=== PATIENT | female | born 2000 | race Caucasian/White ===

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

== ENCOUNTER 2018-08-21 08:22 | Emergency (ER) | payer BC ==
[2018-08-21 08:27] VITALS: BP 134/85; PULSE 129; RESP 16; TEMP 99.9
[2018-08-21] MEDS ORDERED: ACETAMINOPHEN TAB 325 MG TAB PO STA (08:36)
--- NOTE | 2018-08-21 08:40 | ED ---
ENT HPI - General Chief complaint: ENT Stated complaint: Neck pain Time Seen by Provider: 08/21/18 08:28 Source: patient, RN notes reviewed Mode of arrival: ambulatory Limitations: no limitations - History of Present Illness Initial comments: 18-year-old female sent emergency Department chief complaint of sore throat, fever, swollen. Patient states that she had this lymph node on the past in which she had it drained by Dr. Lee in a found a benign repeat she did end up with a postprocedural hematoma. Patient states that she developed a sore throat, fever and increased swelling over this areain the last 24 hours. Patient states is tender with palpation. Patient states that they discussed that she may need a CAT scan at some point though they felt that was not necessary when a new is benign. - Related Data Home Medications Medication Instructions Recorded Confirmed Ibuprofen 800 mg PO TID PRN 08/21/18 08/21/18 Previous Rx's Medication Instructions Recorded Amoxicillin 500 mg PO Q8H #30 capsule 08/21/18 Allergies Allergy/AdvReac Type Severity Reaction Status Date / Time No Known Allergies Allergy Verified 08/21/18 08:24 Review of Systems ROS Statement: Those systems with pertinent positive or pertinent negative responses have been documented in the HPI. ROS Other: All systems not noted in ROS Statement are negative. Past Medical History Past Medical History: Asthma Additional Past Medical History / Comment(s): UTI History of Any Multi-Drug Resistant Organisms: None Reported Past Surgical History: No Surgical Hx Reported Past Psychological History: No Psychological Hx Reported Smoking Status: Never smoker Past Alcohol Use History: None Reported Past Drug Use History: None Reported General Exam Limitations: no limitations General appearance: alert, in no apparent distress Head exam: Present: atraumatic, normocephalic, normal inspection Eye exam: Present: normal appearance, PERRL, EOMI. Absent: scleral icterus, conjunctival injection, periorbital swelling ENT exam: Present: mucous membranes moist, TM's normal bilaterally, normal external ear exam. Absent: normal oropharynx (Erythema) Neck exam: Present: normal inspection, tenderness, full ROM, lymphadenopathy (Anterior cervical adenopathy on the right). Absent: meningismus Respiratory exam: Present: normal lung sounds bilaterally. Absent: respiratory distress, wheezes, rales, rhonchi, stridor Cardiovascular Exam: Present: normal rhythm, tachycardia, normal heart sounds. Absent: systolic murmur, diastolic murmur, rubs, gallop, clicks GI/Abdominal exam: Present: soft, normal bowel sounds. Absent: distended, tenderness, guarding, rebound, rigid Course Vital Signs 08/21/18 08:24 Temperature 99.9 F H Pulse Rate 129 H Respiratory 16 Rate Blood Pressure 134/85 O2 Sat by Pulse 100 Oximetry Medical Decision Making - Medical Decision Making 18-year-old female presented for sore throat, swollen though. Patient clinic last or pharyngitis. Patient be started on antibiotics at this time. She will follow up with Dr. Lee if no improvement CAT scan may be performed at a later date. Patient has no difficulty swallowing. Disposition Clinical Impression: Streptococcal sore throat, Cervical lymphadenopathy Disposition: HOME SELF-CARE Condition: Stable Instructions (If sedation given, give patient instructions): Pharyngitis (ED), Lymphadenopathy (ED) Additional Instructions: Please return to the Emergency Department if symptoms worsen or any other concerns. Prescriptions: Amoxicillin 500 mg PO Q8H #30 capsule Is patient prescribed a controlled substance at d/c from ED?: No Referrals: None,Stated [Primary Care Provider] - 1-2 days Roni Lee DO [Doctor of Osteopathic Medicine] - 1-2 days Time of Disposition: 08:39
== END 2018-08-21 09:00 | disposition home or self-care (01) ==
LOC: EC 08:22
DX: J02.0 Streptococcal pharyngitis (principal); R59.0 Localized enlarged lymph nodes
CPT/HCPCS: 99283

== ENCOUNTER 2021-07-02 17:38 | Emergency (ER) | payer BC ==
[2021-07-02 18:19] VITALS: BP 96/78; PULSE 89; RESP 16; TEMP 98.1
[2021-07-02 19:25] LABS: Appearance,Urine Clear (Clear); Bacteria,Urine Rare /hpf; Bilirubin,Urine Negative (Negative); Blood,Urine Moderate (Negative); Color,Urine Yellow; Glucose,Urine (UA) Negative (Negative); Ketones,Urine 1+ (Negative); Leukocyte Esterase,Urine Negative (Negative); Mucus,Urine Rare /hpf; Nitrite,Urine Negative (Negative); PH, Urine 6.5 (5.0-8.0); Protein,Urine 2+ (Negative); RBC,Urine 5 /hpf (0-5); Specific Gravity,Urine 1.006 (1.001-1.035); Squamous Epithelial Cell,Urine 1 /hpf (0-4); Urobilinogen,Urine <2.0 mg/dL (<2.0); WBC,Urine 5 /hpf (0-5)
[2021-07-02] MEDS ORDERED: ONDANSETRON 4 MG/2 ML VIAL IVP STA (20:50)
[2021-07-02] MEDS ORDERED: SODIUM CHLORIDE 0.9% 1,000 ML IV STA (20:50)
[2021-07-02] MEDS ORDERED: ONDANSETRON ODT 4 MG TAB PO STA (21:11)
[2021-07-02 21:19] LABS: Basophils # (A) 0.1 k/uL (0-0.2); Basophils % (A) 1 %; Eosinophils # (A) 0.1 k/uL (0-0.7); Eosinophils % (A) 1 %; HCT 44.7 % (34.0-46.0); HGB 14.6 gm/dL (11.4-16.0); Lymphocytes # (A) 1.5 k/uL (1.0-4.8); Lymphocytes % (A) 15 %; MCH 27.8 pg (25.0-35.0); MCHC 32.6 g/dL (31.0-37.0); MCV 85.3 fL (80.0-100.0); Mean Platelet Volume 8.4; Monocytes # (A) 0.5 k/uL (0-1.0); Monocytes % (A) 5 %; Neutrophils # (A) 7.7 k/uL (1.3-7.7); Neutrophils % (A) 77 %; Platelet Count 195 k/uL (150-450); RBC 5.23 m/uL (3.80-5.40); RDW 11.4 % (11.5-15.5)
--- NOTE | 2021-07-02 21:20 | ED ---
Nausea/Vomiting/Diarrhea HPI - General Chief complaint: Nausea/Vomiting/Diarrhea Stated complaint: Vomiting/abd pain Time Seen by Provider: 07/02/21 20:31 Source: patient Mode of arrival: ambulatory Limitations: no limitations - History of Present Illness Initial comments: Patient is a 21-year-old female presenting with chief complaint of nausea and vomiting. Patient states that for the last 4 days she has felt nauseous consistently throughout the day, today she began vomiting. Patient states that she has diffuse abdominal pain and her abdomen feels tight. Pain is mainly localized to the right upper quadrant. She was seen by her PCP today who a dvised her to present to the ER. Patient states that she is able to tolerate fluids and a somewhat help relieve her symptoms. She has had very little appetite for the last 4 days, notes no relation to food ingestion with pain and nausea. Patient states that she started her menstrual cycle today. Patient denies chest pain, shortness of breath, fever, chills, hematemesis, hematochezia, diarrhea, constipation, melena, URI-like symptoms, dysuria, hematuria, urgency, frequency, pelvic pain, history of abdominal surgeries. - Related Data Home Medications Medication Instructions Recorded Confirmed Ibuprofen 800 mg PO TID PRN 08/21/18 07/02/21 Albuterol Inhaler [Ventolin Hfa 2 puff INHALATION RT-QID PRN 07/02/21 07/02/21 Inhaler] Dicyclomine (Unknown Strength) 1 dose PO QID PRN 07/02/21 07/02/21 Escitalopram [Lexapro] 10 mg PO DAILY 07/02/21 07/02/21 Etonogestrel/Ethinyl Estradiol 1 vag ring VAGINAL DIRECTED 07/02/21 07/02/21 [Eluryng Vaginal Ring] Famotidine 40 mg PO DAILY 07/02/21 07/02/21 Loratadine 10 mg PO DAILY 07/02/21 07/02/21 Ondansetron Odt [Zofran Odt] 4 mg PO Q8H PRN 07/02/21 07/02/21 Pregabalin [Lyrica] 50 mg PO DAILY 07/02/21 07/02/21 Pregabalin [Lyrica] 100 mg PO HS 07/02/21 07/02/21 buPROPion HCL [buPROPion HCL Xl] 150 mg PO DAILY 07/02/21 07/02/21 busPIRone HCL 10 mg PO DAILY 07/02/21 07/02/21 Previous Rx's Medication Instructions Recorded Ondansetron Odt [Zofran Odt] 4 mg PO Q8HR PRN #20 tab 07/03/21 Allergies Allergy/AdvReac Type Severity Reaction Status Date / Time Latex, Natural Rubber Allergy Unknown Verified 07/02/21 21:54 Review of Systems ROS Statement: Those systems with pertinent positive or pertinent negative responses have been documented in the HPI. ROS Other: All systems not noted in ROS Statement are negative. Past Medical History Past Medical History: Asthma Additional Past Medical History / Comment(s): UTI History of Any Multi-Drug Resistant Organisms: None Reported Past Surgical History: No Surgical Hx Reported Past Psychological History: No Psychological Hx Reported Smoking Status: Never smoker Past Alcohol Use History: None Reported Past Drug Use History: None Reported General Exam Limitations: no limitations General appearance: alert, in no apparent distress Head exam: Present: atraumatic, normocephalic, normal inspection Eye exam: Present: normal appearance. Absent: scleral icterus ENT exam: Present: normal exam, mucous membranes moist Neck exam: Present: normal inspection Respiratory exam: Present: normal lung sounds bilaterally. Absent: respiratory distress, wheezes, rales, rhonchi, stridor Cardiovascular Exam: Present: regular rate, normal rhythm, normal heart sounds. Absent: systolic murmur, diastolic murmur, rubs, gallop, clicks GI/Abdominal exam: Present: soft, tenderness (Diffusely, most notably in the right upper quadrant), normal bowel sounds. Absent: distended, guarding, rebound, rigid Back exam: Present: normal inspection. Absent: CVA tenderness (R), CVA tenderness (L) Neurological exam: Present: alert, oriented X3, CN II-XII intact Psychiatric exam: Present: normal affect, normal mood Skin exam: Present: warm, dry, intact, normal color. Absent: rash Course Vital Signs 07/02/21 18:16 Temperature 98.1 F Pulse Rate 89 Respiratory 16 Rate Blood Pressure 96/78 O2 Sat by Pulse 96 Oximetry Medical Decision Making - Medical Decision Making Patient is a 21-year-old female presenting with chief complaint of nausea and vomiting. Patient admits to right upper quadrant abdominal pain, states that her entire abdomen "feels tight". Vitals are stable. On examination there are bowel sounds in all 4 quadrants, abdomen is diffusely tender, but most notably in the right upper quadrant. Patient was given Zofran and GI cocktail for symptomatic relief. Lab work is remarkable for elevated creatinine of 1.05. [facility] B x-ray is unremarkable. Ultrasound is unremarkable. Patient is given [address] of the abdomen and pelvis with contrast is ordered. On reevaluation patient states that she does not wish to obtain a CT today as she has had several in the last year and she does not want the radiation. I discussed the pros and cons of computed tomography scan today with her, patient remained firm in her decision to not obtain a CT today and is asking to be discharged. Patient acknowledges that this is against my medical recommendations and is not standard of care for her presentation. Patient ac knowledges that going against medical recommendations may result in permanent disability or . I provided her with a prescription for Zofran 4 mg every 8 hours as needed for nausea, I explained to her that this is not the standard of care but is being prescribed in order to help with symptomatic treatment. I answered all questions. Report back to ER if any worsening symptoms. Follow up with PCP in one to 2 days. Patient conveyed verbal understanding and agreed to the plan. - Lab Data Result diagrams: 07/02/21 21:08 07/02/21 21:08 Lab Results 07/02/21 07/02/21 07/02/21 Range/Units 18:55 18:55 18:59 WBC (3.8-10.6) k/uL RBC (3.80-5.40) m/uL Hgb (11.4-16.0) gm/dL Hct (34.0-46.0) % MCV (80.0-100.0) fL MCH (25.0-35.0) pg MCHC (31.0-37.0) g/dL RDW (11.5-15.5) % Plt Count (150-450) k/uL MPV Neutrophils % % Lymphocytes % % Monocytes % % Eosinophils % % Basophils % % Neutrophils # (1.3-7.7) k/uL Lymphocytes # (1.0-4.8) k/uL Monocytes # (0-1.0) k/uL Eosinophils # (0-0.7) k/uL Basophils # (0-0.2) k/uL Sodium (137-145) mmol/L Potassium (3.5-5.1) mmol/L Chloride (98-107) mmol/L Carbon Dioxide (22-30) mmol/L Anion Gap mmol/L BUN (7-17) mg/dL Creatinine (0.52-1.04) mg/dL Est GFR (CKD-EPI)AfAm (>60 ml/min/1.73 sqM) Est GFR (CKD-EPI)NonAf (>60 ml/min/1.73 sqM) Glucose (74-99) mg/dL Calcium (8.4-10.2) mg/dL Total Bilirubin (0.2-1.3) mg/dL AST (14-36) U/L ALT (4-34) U/L Alkaline Phosphatase (38-126) U/L Total Protein (6.3-8.2) g/dL Albumin (3.5-5.0) g/dL Amylase (30-110) U/L Lipase (23-300) U/L Urine Color Yellow Urine Appearance Clear (Clear) Urine pH 6.5 (5.0-8.0) Ur Specific [place] 1.006 (1.001-1.035) Urine Protein 2+ H (Negative) Urine Glucose (UA) Negative (Negative) Urine Ketones 1+ H (Negative) Urine Blood Moderate H (Negative) Urine Nitrite Negative (Negative) Urine Bilirubin Negative (Negative) Urine Urobilinogen <2.0 (<2.0) mg/dL Ur Leukocyte Esterase Negative (Negative) Urine RBC 5 (0-5) /hpf Urine WBC 5 (0-5) /hpf Ur Squamous Epith Cells 1 (0-4) /hpf Urine Bacteria Rare H (None) /hpf Urine Mucus Rare H (None) /hpf Urine HCG, Qual Not Detected (Not Detectd) Influenza Type A (PCR) Not Detected (Not Detectd) Influenza Type B (PCR) Not Detected (Not Detectd) RSV (PCR) Not Detected (Not Detectd) SARS-CoV-2 (PCR) Not Detected (Not Detectd) 07/02/21 07/02/21 Range/Units 21:08 21:08 WBC 10.0 (3.8-10.6) k/uL RBC 5.23 (3.80-5.40) m/uL Hgb 14.6 (11.4-16.0) gm/dL Hct 44.7 (34.0-46.0) % MCV 85.3 (80.0-100.0) fL MCH 27.8 (25.0-35.0) pg MCHC 32.6 (31.0-37.0) g/dL RDW 11.4 L (11.5-15.5) % Plt Count 195 (150-450) k/uL MPV 8.4 Neutrophils % 77 % Lymphocytes % 15 % Monocytes % 5 % Eosinophils % 1 % Basophils % 1 % Neutrophils # 7.7 (1.3-7.7) k/uL Lymphocytes # 1.5 (1.0-4.8) k/uL Monocytes # 0.5 (0-1.0) k/uL Eosinophils # 0.1 (0-0.7) k/uL Basophils # 0.1 (0-0.2) k/uL Sodium 140 (137-145) mmol/L Potassium 4.1 (3.5-5.1) mmol/L Chloride 105 (98-107) mmol/L Carbon Dioxide 24 (22-30) mmol/L Anion Gap 11 mmol/L BUN 14 (7-17) mg/dL Creatinine 1.07 H (0.52-1.04) mg/dL Est GFR (CKD-EPI)AfAm 85 (>60 ml/min/1.73 sqM) Est GFR (CKD-EPI)NonAf 74 (>60 ml/min/1.73 sqM) Glucose 80 (74-99) mg/dL Calcium 9.6 (8.4-10.2) mg/dL Total Bilirubin 1.1 (0.2-1.3) mg/dL AST 29 (14-36) U/L ALT 18 (4-34) U/L Alkaline Phosphatase 60 (38-126) U/L Total Protein 8.1 (6.3-8.2) g/dL Albumin 4.6 (3.5-5.0) g/dL Amylase 56 (30-110) U/L Lipase 38 (23-300) U/L Urine Color Urine Appearance (Clear) Urine pH (5.0-8.0) Ur Specific [place] (1.001-1.035) Urine Protein (Negative) Urine Glucose (UA) (Negative) Urine Ketones (Negative) Urine Blood (Negative) Urine Nitrite (Negative) Urine Bilirubin (Negative) Urine Urobilinogen (<2.0) mg/dL Ur Leukocyte Esterase (Negative) Urine RBC (0-5) /hpf Urine WBC (0-5) /hpf Ur Squamous Epith Cells (0-4) /hpf Urine Bacteria (None) /hpf Urine Mucus (None) /hpf Urine HCG, Qual (Not Detectd) Influenza Type A (PCR) (Not Detectd) Influenza Type B (PCR) (Not Detectd) RSV (PCR) (Not Detectd) SARS-CoV-2 (PCR) (Not Detectd) - Radiology Data Radiology results: report reviewed, image reviewed Ultrasound abdomen: Negative right upper quadrant abdominal sonogram. No gallstones or dilated ducts. K[facility] x-ray: Nonspecific bowel gas pattern without radiographic evidence for acute process. Disposition Clinical Impression: Nausea and vomiting Disposition: HOME SELF-CARE Condition: Fair Instructions (If sedation given, give patient instructions): Acute Nausea and Vomiting (ED), Acute Abdominal Pain (DC) Additional Instructions: You acknowledge that my recommendation is to have an abdominal and pelvic CT today to assist in diagnosing the cause of your symptoms. You acknowledge that you are going against my medical recommendations and leaving without receiving further testing may result in permanent disability or . I'm providing you with a prescription for Zofran 4 mg every 8 hours as needed for nausea. This is not the Standard of care for your presentation and you acknowledge this. Report back to ER if any worsening symptoms. Follow-up with PCP in one to 2 days. Prescriptions: Ondansetron Odt [Zofran Odt] 4 mg PO Q8HR PRN #20 tab PRN Reason: Nausea And Vomiting Is patient prescribed a controlled substance at d/c from ED?: No Referrals: Eddie Owen MD [Primary Care Provider] - 1-2 days Time of Disposition: 00:01
[2021-07-02 21:28] LABS: Albumin 4.6 g/dL (3.5-5.0); Calcium 9.6 mg/dL (8.4-10.2); Total Bilirubin 1.1 mg/dL (0.2-1.3); Total Protein 8.1 g/dL (6.3-8.2)
--- NOTE | 2021-07-02 21:32 | XR ---
EXAMINATION TYPE: XR [facility] DATE OF EXAM: 07/02/2021 9:25 PM INDICATION: Patient age:Female; 21 years old; Reason for study: pain; COMPARISON: None. TECHNIQUE: One radiographic view of the abdomen was obtained. FINDINGS: The bowel gas pattern is nonspecific without dilated loops of small or large bowel. There i s no evidence for organomegaly or pneumoperitoneum. The osseous structures are intact. No abnormal calcifications are present. Fecal material and gas are demonstrated throughout the colon and rectum. IMPRESSION: Nonspecific bowel gas pattern without radiographic evidence for acute process.
[2021-07-02 21:33] LABS: Potassium 4.1 mmol/L (3.5-5.1)
[2021-07-02] MEDS ORDERED: MAG HYDROX/AL HYDROX/SIMETH 30 ML, HYOSCYAMINE ELIXIR 10 ML, LIDOCAINE VISCOUS 2% 10 ML PO STA ×3 (21:52)
[2021-07-02] MEDS ORDERED: KETOROLAC 15 MG/ML 1 ML VIAL IM STA (21:54)
--- NOTE | 2021-07-02 23:21 | US ---
EXAMINATION TYPE: US abdomen limited DATE OF EXAM: 07/02/2021 COMPARISON: NONE CLINICAL HISTORY: RUQ pain. N/V, abdominal pain x 4 days EXAM MEASUREMENTS: Liver Length: 15.4 cm Gallbladder Wall: 0.24 cm CBD: 0.37 cm Right Kidney: 10.7 x 4.7 x 4.7 cm Pancreas: Tail obscured by overlying bowel gas Liver: wnl Gallbladder: No stones seen Evidence for sonographic Goodman's sign: No CBD: wnl Right Kidney: No hydronephrosis or masses seen IMPRESSION: Negative right upper quadrant abdominal sonogram. No gallstones or dilated ducts.
[2021-07-02] MEDS ORDERED: MORPHINE SULFATE 2 MG/ML SYRINGE IM STA (23:27)
[2021-07-02] MEDS ORDERED: SODIUM CHLORIDE 0.9% 1,000 ML IV ONE (23:37)
== END 2021-07-03 00:14 | disposition home or self-care (01) ==
LOC: EC 17:38
DX: R11.2 Nausea with vomiting, unspecified (principal); J45.909 Unspecified asthma, uncomplicated; Z20.822 Contact with and (suspected) exposure to COVID-19; Z91.040 Latex allergy status
CPT/HCPCS: 36415; 80053; 82150; 83690; 85025; 81001; 81025; 87636; 74018; 76705; 99284; 96372; J2270; 99283

== ENCOUNTER → 2021-09-04 | Outpatient (CLI) | payer BC ==
--- NOTE | 2021-09-04 14:06 | US ---
EXAMINATION TYPE: US pelvis complete transvag DATE OF EXAM: 09/04/2021 COMPARISON: NONE CLINICAL HISTORY: R10.2 PELVIC AND PERINEAL PAIN. Pt states pelvic pain and painful periods TECHNIQUE: Transvaginal (TV) and Transabdominal (TA) . Transabdominal sonographic images of the pel vis were acquired. Transvaginal sonographic images were medically necessary to better assess the fol lowing anatomy: Ovaries Date of LMP: 09/01/2021 EXAM MEASUREMENTS: Uterus: 6.3 x 3.2 x 3.7 cm Endometrial Stripe: 0.6 cm Right Ovary: 3.2 x 2.0 x 1.9 cm Left Ovary: 2.6 x 1.8 x 2.0 cm 1. Uterus: Anteverted wnl 2. Endometrium: wnl 3. Right Ovary: wnl, follicles 4. Left Ovary: wnl, follicles 5. Bilateral Adnexa: wnl 6. Posterior cul-de-sac: wnl No abnormality visualized to account for pt's symptoms, attempted to call 's office with results, no answer at [phone] IMPRESSION: 1. No definite acute process.
== END | disposition home or self-care (01) ==
LOC: RADUSWWP 13:02
PROVIDERS: ATTEND Family Medicine
DX: R10.2 Pelvic and perineal pain (principal)
CPT/HCPCS: 76830; 76856

== ENCOUNTER → 2021-10-01 | Outpatient (CLI) | payer BC ==
--- NOTE | 2021-10-01 15:17 | NM ---
EXAMINATION TYPE: NM bone scan whole body DATE OF EXAM: 10/01/2021 COMPARISON: NONE HISTORY: Pain Delayed whole-body scanning was performed following the injection of 23.7 mCi Tc 99m MDP. Images acq uired 3 hours post injection. FINDINGS: There is a focal area of abnormal uptake involving the plantar surface of the left foot laterally. Mi nimal basis of trauma. Remaining osseous structures demonstrate symmetric uptake. IMPRESSION: 1. Focal intense uptake along the plantar surface lateral margin of the mid foot. Possibly related to the tarsal bones or base of fifth metatarsal. Recommend x-ray correlation.
== END | disposition home or self-care (01) ==
LOC: RADNMMAIN 10:31
PROVIDERS: ATTEND Family Medicine
DX: M89.9 Disorder of bone, unspecified (principal)
CPT/HCPCS: 78306; A9503

== ENCOUNTER → 2022-04-19 | Outpatient (CLI) | payer BC ==
--- NOTE | 2022-04-19 10:29 | USB ---
Reason for Exam: Clinical finding. Technique: Method: Whole Breast Handheld. Findings: The whole breast of the right breast, the axilla of the right breast and the retroareolar of the right breast were scanned. A complete US of all four quadrants of the breast and retro-areolar and axillary region were reviewed. No solid or cystic masses are identified. Overall Assessment: Negative, BI-RAD 1 Management: Screening Mammogram of both breasts at age 38. Managed palpable abnormality clinically. Results were given to the patient verbally at the time of exam. Electronically signed and approved by: Sabino Smith M.D.
== END | disposition home or self-care (01) ==
LOC: RADUSWWP 09:47
PROVIDERS: ATTEND Family Medicine
DX: N60.01 Solitary cyst of right breast (principal)

== ENCOUNTER → 2024-05-18 | Outpatient (CLI) | payer BC ==
--- NOTE | 2024-05-18 17:06 | US ---
EXAMINATION TYPE: US transvaginal DATE OF EXAM: 05/18/2024 COMPARISON: 09/04/21 CLINICAL INDICATION: Female, 24 years old with history of R10.30 LOWER ABDOMINAL PAIN; lower pelvic c ramping x 3 days TECHNIQUE: Transvaginal (TV). FINDINGS: Date of LMP: Pt gets the Depo shot. States her last period was over 3 years ago EXAM MEASUREMENTS: Uterus: 6.0 x 4.1 x 2.9 cm Endometrial Stripe: 0.5 cm Right Ovary: 3.7 x 3.2 x 2.6 cm Left Ovary: 2.2 x 2.0 x 1.0 cm 1. Uterus: Anteverted wnl 2. Endometrium: wnl 3. Right Ovary: dominant follicle seen measuring 2.2 x 2.2 x 2.2cm 4. Left Ovary: wnl 5. Bilateral Adnexa: wnl 6. Posterior cul-de-sac: mild free fluid seen IMPRESSION: No evidence for acute process. [facility], , 05/18/2024 5:04 PM
== END | disposition home or self-care (01) ==
LOC: RADUSWWP 15:04
PROVIDERS: ATTEND Family Medicine
DX: R10.30 Lower abdominal pain, unspecified (principal)
CPT/HCPCS: 76830

== ENCOUNTER → 2024-09-15 | Outpatient (CLI) | payer BC ==
--- NOTE | 2024-09-15 15:26 | USB ---
Reason for Exam: Clinical finding. Technique: Method: Targeted. Findings: The upper inner quadrant of the left breast, the area of palpable concern of the left breast, the axilla of the left breast and the retroareolar of the left breast were scanned. Targeted ultrasound upper inner quadrant left breast 9:00 to 12:00 as well as the subareolar region and axilla. Scattered dense tissue is present throughout. No solid or cystic lesion. No axillary adenopathy. Overall Assessment: Negative, BI-RAD 1 Management: Screening Mammogram of both breasts at age 38. Unless there is an indication to start sooner. Further clinical management for any suspicious palpable areas. Patient can continue monthly self breast exams. These results should not preclude additional follow-up of suspicious palpable abnormalities. Results were given to the patient verbally at the time of exam. [facility], , 09/15/2024 3:23 PM. Electronically signed and approved by: China Vernon M.D. Radiologist
== END | disposition home or self-care (01) ==
LOC: RADUSWWP 15:00
PROVIDERS: ATTEND Family Medicine
DX: N63.22 Unspecified lump in the left breast, upper inner quadrant (principal)